=== PATIENT | male | born 1950 | race Hispanic/Latino ===

== ENCOUNTER 2018-10-10 11:12 | Emergency (ER) | payer MEDICARE ==
[~2018-10-10] VITALS: Ht 162.6 cm; Wt 82.6 kg
[2018-10-10] MEDS ORDERED: ALBUTEROL SULF 0.083% NEB SOLN 3 ML NEB NEB STA (11:42)
[2018-10-10] MEDS ORDERED: IPRATROPIUM BROMIDE 0.02% 2.5 ML NEB NEB ONE (11:45)
--- NOTE | 2018-10-10 12:17 | Diagnostic Imaging Report ---
EXAMINATION: CXR 2 VIEW - HOPD INDICATION: ^[id number] ^[id number] COMPARISON: None FINDINGS: PA and lateral views TUBES and LINES: None. LUNGS: Lungs are well inflated. There is no evidence of pneumonia or pulmonary edema. PLEURA: No pleural effusion or pneumothorax. HEART AND MEDIASTINUM: The cardiomediastinal silhouette is unremarkable. BONES AND SOFT TISSUES: No acute osseous lesion. Soft tissues are unremarkable. UPPER ABDOMEN: No free air under the diaphragm. IMPRESSION: No acute thoracic abnormality. Signed by: Dr. Regan Rsos MD on 10/10/2018 12:14 PM
[2018-10-10] MEDS ORDERED: ACETAMINOPHEN 325 MG TAB PO ONE (12:30)
== END 2018-10-10 13:12 | disposition home or self-care (01) ==
LOC: FSED 11:12
DX: R50.9 Fever, unspecified (principal); R05 Cough; J11.1 Influenza due to unidentified influenza virus with other respiratory manifestations
CPT/HCPCS: 71046; 81003; 87400; 99283

== ENCOUNTER 2020-11-12 09:58 | Observation (INO) | payer MEDICARE ==
[~2020-11-12] VITALS: Ht 177.8 cm; Wt 79.4 kg
[2020-11-12] MEDS ORDERED: BACTRIM DS TAB1 EACH PO (10:33)
[2020-11-12] MEDS ORDERED: LOSARTAN-HCTZ1 EAC1 (10:33)
[2020-11-12] MEDS ORDERED: FAMOTIDINE20 MG PO (10:33)
[2020-11-12] MEDS ORDERED: SODIUM CHLORIDE 0.9% 1000ML 1,000 ML IV STA ×2 (10:37→12:09)
[2020-11-12] MEDS ORDERED: ONDANSETRON HCL INJ 2MG/ML 2ML 2 MG/ML VIAL IV ONE (10:45)
[2020-11-12] MEDS ORDERED: FAMOTIDINE 20 MG/2 ML VIAL IV ONE ×2 (10:45→11:44)
[2020-11-12] MEDS ORDERED: SODIUM CHLORIDE 0.9% 1000ML 1,000 ML ONE ×2 (11:44→13:03)
[2020-11-12] MEDS ORDERED: ONDANSETRON HCL INJ 2MG/ML 2ML 2 MG/ML VIAL ONE (11:44)
[2020-11-12] MEDS ORDERED: ONDANSETRON ODT4 MG PO (11:53)
[2020-11-12] MEDS ORDERED: DIPHENHYDRAMINE HCL INJ 50 MG/ML VIAL IV PRN (12:15)
[2020-11-12] MEDS ORDERED: SODIUM CHLORIDE FLUSH 10 ML SYR INJ PRN (12:15)
[2020-11-12] MEDS ORDERED: ACETAMINOPHEN 325 MG TAB PO PRN (12:15)
[2020-11-12] MEDS ORDERED: ONDANSETRON HCL INJ 2MG/ML 2ML 2 MG/ML VIAL IV PRN (12:15)
[2020-11-12] MEDS ORDERED: MORPHINE SULFATE INJ 2 MG/ML SYR IV PRN (12:15)
[2020-11-12] MEDS: SODIUM CHLORIDE 0.45% 1,000 ML IV SCH ×2 (12:53→17:50)
[2020-11-12 15:20] VITALS: BP 126/72
[2020-11-12 15:42] VITALS: BP 130/59
[2020-11-12 15:43] VITALS: BP 130/59
[2020-11-12 16:04] VITALS: BP 130/59
[2020-11-12] MEDS: FAMOTIDINE 20 MG TAB PO SCH (16:14)
[2020-11-12 19:28] LABS: CREATINE KINASE MB 1.2 ng/mL (0-5.0)
[2020-11-12 20:00] VITALS: BP 116/62
[2020-11-12 21:35] VITALS: BP 116/62
[2020-11-13] VITALS: BP 150/78
[2020-11-13] MEDS: SODIUM CHLORIDE 0.45% 1,000 ML IV SCH (01:45)
[2020-11-13 04:00] VITALS: BP 118/43
[2020-11-13 06:46] LABS: BASOPHILS % 0.5 % (0.0-1.0); EOSINOPHILS # (AUTO) 0.1 (0.0-0.4); EOSINOPHILS % 2.5 % (0.0-6.0); HEMATOCRIT 33.2 % (38.2-49.6); HEMOGLOBIN 11.4 g/dL (14.0-18.0); LYMPHOCYTES # (AUTO) 1.7 (1.0-3.2); LYMPHOCYTES % 29.6 % (18.0-39.1); MEAN CORPUSCULAR HEMOGLOBIN 31.1 pg (28-32); MEAN CORPUSCULAR HGB CONC 34.3 g/dL (31-35); MEAN CORPUSCULAR VOLUME 90.7 fL (81-99); MONOCYTES # (AUTO) 0.4 (0.2-0.8); MONOCYTES % 7.5 % (4.4-11.3); NEUTROPHILS # (AUTO) 3.3 (2.1-6.9); NEUTROPHILS % 59.5 % (38.7-80.0); PLATELET COUNT 165 x10e3/uL (140-360); RED BLOOD COUNT 3.66 x10e6/uL (4.3-5.7); RED CELL DISTRIBUTION WIDTH 13.1 % (11.7-14.4)
[2020-11-13 08:05] VITALS: BP 163/86
[2020-11-13 08:14] VITALS: BP 163/86
[2020-11-13] MEDS: FAMOTIDINE 20 MG TAB PO SCH (08:51)
[2020-11-13 11:37] LABS: OCCULT BLOOD STOOL NEGATIVE (NEGATIVE); WBC,FECAL (FECAL LACTOFERRIN) NEGATIVE (NEGATIVE)
[2020-11-13 11:46] VITALS: BP 130/85
[2020-11-13] MEDS ORDERED: ONDANSETRON HCL 4 MG ORAL DISINTEGRATING TAB PO PRN (14:15)
[2020-11-13 15:16] LABS: CREATINE KINASE MB 1.2 ng/mL (0-5.0)
[2020-11-13 15:29] LABS: ANION GAP 12.8 mmol/L (8-16); CALCIUM 8.4 mg/dL (8.4-10.2); CREATININE, SERUM 1.61 mg/dL (0.72-1.25); PHOSPHORUS 3.4 MG/DL (2.3-4.7); POTASSIUM 4.8 mmol/L (3.5-5.1)
[2020-11-13 16:10] VITALS: BP 153/73
== END 2020-11-13 17:53 | disposition home or self-care (01) ==
LOC: FSED 10:30 → ERHOLD 12:14 → MED/SURG 15:10
PROVIDERS: ADMIT Internal Medicine; ATTEND Internal Medicine
DX: I45.4 Nonspecific intraventricular block (principal); E86.0 Dehydration; N17.9 Acute kidney failure, unspecified; I10 Essential (primary) hypertension; Z20.822 Contact with and (suspected) exposure to COVID-19; D64.9 Anemia, unspecified; R19.7 Diarrhea, unspecified
CPT/HCPCS: 36415 ×2; 74176; 80048 ×2; 80076; 81003; 82270; 82550 ×2; 82553 ×2; 82948; 83630; 84100; 84484 ×2; 85025 ×2; 87177; 87328; 93005; 93306; 96374; 96375; 99284; G0378 ×2; J2270; J2405; J7030; U0002